=== PATIENT | male | born 1950 | race Caucasian/White ===

== ENCOUNTER 2022-09-23 13:14 | Day surgery (SDC) | payer MEDICARE, OTHER ==
[~2022-09-23] VITALS: Ht 185.4 cm; Wt 93.0 kg
[~2022-09-23 13:14] MED LIST: AVOD0.5C PO; CARB-113 PO; DOXA2TAB80 PO; ELIQ5TAB PO; FLON27.5 NARES; FLOR250C PO; FURO40TA2 PO; HYPR15DR3 OD; MELA3TAB21 PO; METO1TAB87 PO; MIRA1TAB3 PO; MIRA3350 PO; NUPL34CA PO; POTA-164 PO; symmetrel PO
[2022-09-23] MEDS ORDERED: OXYMETAZOLINE 0.05% NASAL SPRAY (AFRIN) As Ordered ONE (15:25)
[2022-09-23] MEDS ORDERED: SILVER NITRATE APPLICATOR (1 = QTY 10) As Ordered ONE (15:25)
[2022-09-23] MEDS ORDERED: THROMBIN 5,000 UNITS VIAL As Ordered ONE (15:25)
[2022-09-23] MEDS ORDERED: BACITRACIN OINTMENT 30GM TUBE As Ordered ONE (15:25)
[2022-09-23] MEDS ORDERED: propofoL 200 MG/20 ML VIAL As Ordered ONE (15:31)
[2022-09-23] MEDS ORDERED: LIDOCAINE 2% 100MG/5ML SDV (FOR ANES.) As Ordered ONE (15:31)
[2022-09-23] MEDS ORDERED: MIDAZOLAM INJ 2MG/2ML VIAL As Ordered ONE (15:32)
[2022-09-23] MEDS ORDERED: PHENYLEPHRINE 0.5% NASAL SPRAY 15 ML As Ordered ONE (15:32)
[2022-09-23] MEDS ORDERED: fentaNYL 100 MCG/2 ML INJECTION As Ordered ONE (15:32)
[2022-09-23] MEDS ORDERED: CIPRODEX OTIC SUSP 7.5ML As Ordered ONE (15:33)
[2022-09-23] MEDS ORDERED: LR 1,000 ML IV SCH (15:35)
[2022-09-23] MEDS ORDERED: METHYLENE BLUE 0.5% (5MG/ML) 10 ML AMP (PROVAYBLUE) As Ordered ONE (15:53)
[2022-09-23] MEDS ORDERED: EPINEPHrine 1MG/ML INJ 30ML MD-VIAL As Ordered ONE (15:53)
[2022-09-23 17:07] VITALS: BP 132/76; TEMP 98.2; O2SAT 98
== END 2022-09-23 17:17 | disposition home or self-care (01) ==
LOC: M SDC 13:14
PROVIDERS: ATTEND Otolaryngology
DX: H70.892 Other mastoiditis and related conditions, left ear (principal); H90.6 Mixed conductive and sensorineural hearing loss, bilateral; H93.13 Tinnitus, bilateral; H69.92 Unspecified Eustachian tube disorder, left ear; I10 Essential (primary) hypertension; Z86.718 Personal history of other venous thrombosis and embolism; N40.0 Benign prostatic hyperplasia without lower urinary tract symptoms; G20 Parkinson's disease; R41.0 Disorientation, unspecified; Z88.8 Allergy status to other drugs, medicaments and biological substances; Z79.899 Other long term (current) drug therapy; Z79.01 Long term (current) use of anticoagulants
CPT/HCPCS: 31231; 69436; J0171; J2250; J3010; Q9968

== ENCOUNTER 2022-10-25 13:51 | Outpatient (RCR) | payer MEDICARE, OTHER | END 2022-11-04 | LOC: M PT 13:51 | PROVIDERS: ATTEND Nurse Practitioner Family | DX: I89.0 Lymphedema, not elsewhere classified (principal) ==

== ENCOUNTER 2022-12-31 10:37 | Outpatient (RCR) | payer MEDICARE, OTHER | END 2023-01-04 | LOC: M PT 10:37 | PROVIDERS: ATTEND Nurse Practitioner Family | DX: I89.0 Lymphedema, not elsewhere classified (principal) ==

== ENCOUNTER 2023-08-08 11:18 | Outpatient (RCR) | payer MEDICARE, OTHER | END 2023-09-04 | LOC: M PT 11:18 | PROVIDERS: ATTEND Physician Assistant | DX: I89.0 Lymphedema, not elsewhere classified (principal) ==

== ENCOUNTER 2024-02-08 10:24 | Outpatient (RCR) | payer MEDICARE, MEDICAID | END 2024-03-06 | LOC: M PT 10:24 | PROVIDERS: ATTEND Physician Assistant | DX: I89.0 Lymphedema, not elsewhere classified (principal) ==

== ENCOUNTER → 2024-09-14 | Outpatient (REF) | payer MEDICARE, MEDICAID, OTHER | LOC: M SFHCDERM 13:13 | PROVIDERS: ATTEND Physician Assistant | DX: D48.9 Neoplasm of uncertain behavior, unspecified (principal); C44.42 Squamous cell carcinoma of skin of scalp and neck ==

== ENCOUNTER 2025-01-24 14:56 | Outpatient (RCR) | payer MEDICARE, MEDICAID | END 2025-02-03 | LOC: M PT 14:56 | PROVIDERS: ATTEND Physician Assistant | DX: I89.0 Lymphedema, not elsewhere classified (principal) ==